=== PATIENT | female | born 1995 | race Two or more races ===

== ENCOUNTER 2016-05-24 19:44 | Emergency (ER) | payer BC, MEDICAID ==
[~2016-05-24] VITALS: Ht 162.6 cm; Wt 53.6 kg
[2016-05-24] MEDS ORDERED: ACETAMINOPHEN 325 MG TAB PO ONE ×2 (20:18→20:30)
[2016-05-24] MEDS ORDERED: ACETAMINOPHEN 650 mg PER 20 mL UD PO ONE (20:30)
[2016-05-24 21:22] LABS: Basophils # (auto) 0 uL; Eosinophils # (auto) 0 uL; Eosinophils % (auto) 0.1 % (0.0-7.0); Hematocrit 32.9 % (36.0-46.0); Hemoglobin 10.9 g/dL (12.2-16.2); Lymphocytes # (auto) 0.7 uL; Lymphocytes % (auto) 6.6 % (10.0-50.0); Mean Corpuscular Hemoglobin 29.6 pg (28.0-32.0); Mean Corpuscular Hgb Conc. 33.2 g/dL (32.0-36.0); Mean Corpuscular Volume 89.3 fL (80.0-100.0); Mean Platelet Volume 8.2 fL (7.4-10.4); Monocytes # (auto) 0.8 uL; Monocytes % (auto) 8.4 % (0.0-12.0); Neutrophils # (auto) 8.5 uL; Neutrophils % (auto) 84.9 % (37.0-80.0); Platelet Count (auto) 315 10^3/uL (140-450); Red Cell Distribution Width 13.2 % (11.6-16.0); White Blood Cell 10.1 10^3/uL (4.4-10.8)
[2016-05-24 21:32] LABS: Albumin 3.2 g/dL (3.4-5.0); Calcium 8.6 mg/dL (8.5-10.1); Potassium 3.7 mmol/L (3.5-5.1)
[2016-05-24 21:35] LABS: BUN/Creatinine Ratio 10.3
[2016-05-24 21:37] LABS: Bilirubin, Total 0.4 mg/dL (0.2-1.0); Total Protein 7.4 g/dL (6.4-8.2)
[2016-05-24 22:09] LABS: Urine Color Yellow (Yellow)
[2016-05-24 22:10] LABS: Urine Glucose Normal (Normal); Urine Ketone Negative (Negative); Urine Nitrite Negative (Negative)
[2016-05-24 22:11] LABS: Urine Bilirubin Negative (Negative); Urine Blood Trace /uL (Negative); Urine Mucus FEW (None Seen); Urine RBC 2 /hpf (0 - 4); Urine Squamous Epithelial Cell FEW /hpf (<5); Urine Urobilinogen Normal (Negative)
[2016-05-24] MEDS ORDERED: SODIUM CHLORIDE 0.9% 1,000 ML IV ONE (23:15)
[2016-05-25 01:40] VITALS: BP 134/75
== END 2016-05-25 03:14 | disposition home or self-care (01) ==
LOC: ER 19:53
DX: O23.42 Unspecified infection of urinary tract in pregnancy, second trimester (principal); N39.0 Urinary tract infection, site not specified; Z3A.20 20 weeks gestation of pregnancy
CPT/HCPCS: 36415; 76805; 80053; 81001; 81025; 84702; 85025; 87040; 94761; 96360